=== PATIENT | female | born 1975 | race Caucasian/White ===

== ENCOUNTER 2019-11-04 06:35 | Observation (INO) | payer SELFPAY ==
[2019-11-04 07:07] LABS: #Basophils 0.1 thou/uL (0.0-0.2); #Eosinphils 0.3 thou/uL (0.0-0.7); #Lymphocytes 2.7 thou/uL (1.20-3.40); #Monocytes 0.9 thou/uL (0.11-0.59); #Neutrophils 14.3 thou/uL (1.40-6.50); %Basophils 0.4 % (0.0-1.0); %Eosinophils 1.6 % (0.0-10.0); %Lymphocytes 14.8 % (21.0-51.0); %Neutrophils 78.3 % (42.0-75.0); Hemoglobin 11.8 g/dL (12.0-16.0); Mean Corpuscular HGB CONC 33.7 g/dL (32.0-36.0); Mean Corpuscular Hemoglobin 30.6 pg (27.0-31.0); Mean Corpuscular Volume 90.8 fL (78.0-98.0); Mean Platelet Volume 6.8 fL (7.4-10.4); Platelet Count 261 thou/uL (130-400); RBC Distribution Width 11.4 % (11.5-14.5); Red Blood Cell (RBC) Count 3.84 mill/uL (4.20-5.40); White Blood Cell (WBC) Count 18.3 thou/uL (4.8-10.8)
[2019-11-04 07:10] LABS: BHCG - Serum POSITIVE (NEGATIVE); Pregs Control Background? CLEAR/WHITE (CLR/WHITE); Pregs Control Bar Appear? YES (CONTROL BAR)
[2019-11-04 07:26] LABS: ALT (SGPT) 12 U/L (8-55); AST (SGOT) 12 U/L (5-34); Albumin 3.7 g/dL (3.5-5.0); Alkaline Phosphatase 79 U/L (40-110); Anion Gap 12 mmol/L (10-20); BUN (Urea Nitrogen) 9 mg/dL (7.0-18.7); Bilirubin, Total 0.3 mg/dL (0.2-1.2); Calc. Creatinine Clearance 0 mL/min (70-130); Calcium 8.7 mg/dL (7.8-10.44); Carbon Dioxide 20 mmol/L (22-29); Chloride 110 mmol/L (98-107); Estimated GFR-MDRD 90; Globulin 2.2 g/dL (2.4-3.5); Glucose 139 mg/dL (70-105); Protein, Total 5.9 g/dL (6.0-8.3); Sodium 138 mmol/L (136-145)
[2019-11-04] MEDS ORDERED: Fentanyl 100 MCG/2 ML VIAL ONE (08:11)
[2019-11-04] MEDS ORDERED: Misoprostol 200 MCG TAB PO SCH (08:15)
--- NOTE | 2019-11-04 08:22 | ULT ---
Exam: Transabdominal and endovaginal pelvic ultrasound HISTORY:Evaluate for ectopic COMPARISON: None TECHNIQUE: Transabdominal and endovaginal imaging of the pelvis is performed. Ovaries are interrogate d with grayscale, color flow, Doppler imaging and spectral wave form analysis FINDINGS: Uterus: No myometrial masses. Uterus measurin.9 x 7.9 x 6.5 cm. Endometrium: Slightly heterogeneous and thickened measuring 3.4 cm. No evidence of a gestational sac, yolk sac or pole. Free fluid: None Right ovary: Normal echotexture Right ovary measurement: 2.0 x 1.8 x 2.8 cm Left ovary: Normal echotexture. Left ovary measurements: 1.2 x 2.6 x 2.8 cm Ovarian Doppler: There is vascular flow to the left and right ovary. IMPRESSION: 1. No sonographic evidence of a gestational sac, yolk sac or pole. 2. Heterogeneous, thickened endometrium which may represent blood products. The possibility of retain ed products of conception cannot be excluded. Follow-up ultrasound and serial beta hCG is recommended. Dr. Santiago was present while the area director performing the examination. Transcribed Date/Time: 11/04/2019 8:44 AM
[2019-11-04] MEDS ORDERED: diphenhydrAMINE 50 MG/ML VIAL IVP SCH (09:30)
[2019-11-04] MEDS: Acetaminophen 500 MG TAB PO PRN ×2 (10:01→17:16)
[2019-11-04 11:19] VITALS: BMI 23.6
--- NOTE | 2019-11-04 12:49 | HP ---
HISTORY OF PRESENT ILLNESS: Ms. Vidal is a 44-year-old white female, G2, P1, A1 with previous over 25 years ago and also history of a prior tubal treated by methotrexate therapy approximately 20 years ago, who presented to the emergency room, noted to be hypotensive with a blood pressure systolic of 70 and tachycardia. She reports having onset of very heavy vaginal bleeding on 11/02, where she was actually running down her legs and filling her underwear and saturating a maxi pad every 15 minutes. The bleeding had decreased, but it continued to bleed heavily and started feeling faint and near syncopal when standing. She has been having significant cramping associated with this. She reports her last menstrual period of late August. Her serum test was positive on arrival to the ER. Her stat hemoglobin was noted to be 11.8, platelets 261. She responded to a liter of crystalloid bolus and was evaluated by the ER attending, Dr. Kel Martinez. I was called by him for concern for possible ectopic due to her history. PAST MEDICAL HISTORY: Otherwise negative. PAST SURGICAL HISTORY: Appendectomy. ALLERGIES: SHE HAS NO KNOWN DRUG ALLERGIES. SOCIAL HISTORY: Positive for cigarette smoking. No excessive alcohol or drug use. PHYSICAL EXAMINATION: GENERAL: On exam, the patient is now resting in the bed. Transabdominal ultrasound is ongoing. She is alert and oriented x3. Good historian. NECK: Supple. No masses. CHEST: Clear to auscultation. HEART: Regular rate and rhythm. S1 and S2 heart sounds. ABDOMEN: Soft. She has a palpable uterus with irregular contour approximately 16-week size. While at the bedside, I visualized the ultrasound by the Sonotec. She does have uterine fibroids that is explaining the enlargement of the uterus. There were no adnexal masses seen. The uterine cavity showed no gestational sac, but residual possibly some products of conception with hematoma blood clot present. Bimanual exam showed on vulva and vagina, there was significant amount of blood in the vaginal vault. Cervical os was not opened to my finger. Uterus with irregular contour of 16-week size and nontender. LABORATORY DATA: A quantitative HCG level now is available and is noted to be 865. Blood type is B positive. Antibody screen negative. Hemoglobin 11.8, hematocrit is 34.8%, platelet count 261,000. ASSESSMENT: This is a 44-year-old white female, now G3, P1, A1 with most likely incomplete miscarriage/. Acute blood loss from recent hemorrhage from the miscarriage. Hypotensive episode on arrival, now responsive to IV fluid bolus. Recommend give 1 unit of packed red cells due to most likely the blood loss. Hemoglobin will fall with equilibration. We will give oral Cytotec 800 mcg now. We will observe the patient and will hand the patient over to Dr. Luis Antonio Egan, who is OB hospitalist service, which I have discussed the patient with now. We will observe her for need for additional transfusion and also her bleeding whether the Cytotec remedies the vaginal bleeding from the post miscarriage. Her blood type is B positive. Job ID: [id number]
[2019-11-04] MEDS ORDERED: Sodium Chloride 0.9% 1,000 ML IV SCH (14:30)
[2019-11-04 17:07] LABS: Hemoglobin 10.1 g/dL (12.0-16.0); Mean Corpuscular HGB CONC 34.6 g/dL (32.0-36.0); Mean Corpuscular Volume 92.4 fL (78.0-98.0); Mean Platelet Volume 6.7 fL (7.4-10.4); Platelet Count 221 thou/uL (130-400); RBC Distribution Width 11.8 % (11.5-14.5); Red Blood Cell (RBC) Count 3.16 mill/uL (4.20-5.40); White Blood Cell (WBC) Count 13.5 thou/uL (4.8-10.8)
[2019-11-04 17:24] VITALS: BP 103/58; TEMP 99.3
--- NOTE | 2019-11-05 22:43 | DIS ---
DATE OF ADMISSION: 11/04/2019 DATE OF DISCHARGE: 11/04/2019 ADMITTING DIAGNOSES: 1. Acute blood loss anemia. 2. Incomplete or spontaneous AB. 3. Vaginal bleeding. DISCHARGE DIAGNOSES: 1. Acute blood loss anemia. 2. Incomplete or spontaneous AB. 3. Vaginal bleeding. PROCEDURE PERFORMED: Blood transfusion of 1 unit. CONSULTATIONS: None. HOSPITAL COURSE: The patient is a 44-year-old female, who presented to the emergency room with severe vaginal bleeding that worsened over the last several days and a positive test. The patient initially presented hypotensive and the emergency staff was concerned that she had a ruptured ectopic. On further evaluation, the patient was noted to likely just be having a miscarriage. She was given IV fluid resuscitation, stabilizing her blood pressures and 8 units of packed red blood cells. By the time I was on board for service, bleeding had significantly improved. The patient was given 800 mcg of Cytotec and brought to the floor for observation to get her blood. Over the course of her stay, the patient has remained stable. She was given a unit of blood and approximately an hour later, orthostatic pressures were performed and patient was noted to have more than 20 point rise in her pulse from sitting to standing. The patient was given another liter bolus of fluid and several hours later, blood was drawn. Approximately 5 hours after she finished her packed red blood cells. Hemoglobin came back at 10.1 and 29.2. The patient by then felt much and much better. She had good color. Vital signs showed blood pressure of 103/58, temperature of 99.3, pulse of 80, respiratory rate of 16, saturating 97% on room air. The patient was discharged home with instructions to follow up with a provider of choice and to seek medical attention should she experience heavy bleeding again. Also was counseled that she should expect her periods to return back to normal and she has had normal regular monthly periods prior to this event. Job ID: [id number]
== END 2019-11-04 15:50 | disposition home or self-care (01) ==
LOC: ERS 06:35 → 3SE 08:10
PROVIDERS: ADMIT Obstetrics & Gynecology; ATTEND Obstetrics & Gynecology
DX: O03.1 Delayed or excessive hemorrhage following incomplete spontaneous abortion (principal); D62 Acute posthemorrhagic anemia; I95.9 Hypotension, unspecified; F17.210 Nicotine dependence, cigarettes, uncomplicated; D25.9 Leiomyoma of uterus, unspecified
CPT/HCPCS: 36415; 36430; 76856; 80053; 84702; 84703; 85025; 86850; 86900; 86901; 96361; 96374; G0378; J1200; J3010; P9016